=== PATIENT | female | born 1985 | race Two or more races ===

== ENCOUNTER 2019-06-20 12:46 | Emergency (ER) | payer OTHER ==
--- NOTE | 2019-06-20 14:14 | ER Document Report ---
ED Medical Screen (RME) - General Chief Complaint: Abdominal Pain Stated Complaint: ABDOMINAL PAIN Time Seen by Provider: 06/20/19 14:09 Mode of Arrival: Ambulatory Information source: Patient, Relative - Notes: Patient is an otherwise healthy 33-year-old female presenting to the emergency department with complaints of low abdominal pain, headache, cough and nasal congestion. Patient's patient's is answering questions at this time and we will obtain Martti once patient is in the room. Patient has not had any care she just recently arrived to this country. She denies any vaginal bleeding or vaginal discharge. She does report intermittent low abdominal pains. Exam: Patient alert, oriented, no acute distress noted. Abdomen soft, nontender with no guarding no rebound. Examination limited due to location in triage. I have greeted and performed a rapid initial assessment of this patient. A comprehensive ED assessment and evaluation of the patient, analysis of test results and completion of the medical decision making process will be conducted by additional ED providers. I have specifically instructed the patient or family members with the patient to immediately return to any nursing staff should anything change in the patient's condition or with their chief complaint. This medical record was dictated with voice recognizing software. There may be grammatical, syntax errors that are unintended. TRAVEL OUTSIDE OF THE [place] IN LAST 30 DAYS: No - Related Data Allergies/Adverse Reactions: No Known Allergies Allergy (Verified 06/20/19 14:08) Physical Exam - Vital signs Vitals: Temp Pulse Resp BP Pulse Ox 98.5 F 88 18 125/65 100 06/20/19 13:32 06/20/19 13:32 06/20/19 13:32 06/20/19 13:32 06/20/19 13:32 Course - Vital Signs Vital signs: Temp Pulse Resp BP Pulse Ox 98.5 F 88 18 125/65 100 06/20/19 13:32 06/20/19 13:32 06/20/19 13:32 06/20/19 13:32 06/20/19 13:32
[2019-06-20 14:54] LABS: ABSOLUTE EOSINOPHILS # (AUTO) 0.5 10^3/uL (0.0-0.6); ABSOLUTE LYMPHOCYTES (AUTO) 2.8 10^3/uL (0.5-4.7); ABSOLUTE MONOCYTES (AUTO) 0.7 10^3/uL (0.1-1.4); ABSOLUTE NEUT (AUTO) 7.3 10^3/uL (1.7-8.2); BASOPHILS % (AUTO) 0.4 % (0-2); EOSINOPHILS % (AUTO) 4.7 % (0-6); HEMATOCRIT 41.8 % (36.0-47.0); LYMPHOCYTES % (AUTO) 24.9 % (13-45); MEAN CORPUSCULAR HEMOGLOBIN 24.4 pg (27.0-33.4); MEAN CORPUSCULAR HGB CONC 33.6 g/dL (32.0-36.0); MEAN CORPUSCULAR VOLUME 73 fl (80-97); MONOCYTES % (AUTO) 6.1 % (3-13); PLATELET COUNT 280 10^3/uL (150-450); RED BLOOD COUNT 5.76 10^6/uL (3.72-5.28); RED CELL DISTRIBUTION WIDTH 13.6 % (11.5-14.0); SEGMENTED NEUTROPHILS % (AUTO) 63.9 % (42-78); TOTAL CELLS COUNTED % (AUTO) 100 %; WHITE BLOOD COUNT 11.4 10^3/uL (4.0-10.5)
[2019-06-20 15:03] LABS: AMORPHOUS SEDIMENT,URINE TRACE /HPF; APPEARANCE,URINE CLOUDY; BILIRUBIN,URINE NEGATIVE (NEGATIVE); COLOR,URINE YELLOW; GLUCOSE, URINE NEGATIVE (NEGATIVE); KETONES,URINE NEGATIVE (NEGATIVE); LEUKOCYTE ESTERASE,URINE NEGATIVE (NEGATIVE); NITRITE,URINE NEGATIVE (NEGATIVE); PROTEIN,URINE 30 mg/dL (NEGATIVE); UROBILINOGEN,URINE NEGATIVE mg/dL (<2.0)
[2019-06-20 15:13] LABS: ALKALINE PHOSPHATASE 88 U/L (38-126); ANION GAP 8 (5-19); ASPARTATE AMINO TRANSFERASE 15 U/L (14-36); BILIRUBIN,DIRECT 0.2 mg/dL (0.0-0.4); BILIRUBIN,TOTAL 0.4 mg/dL (0.2-1.3); BLOOD UREA NITROGEN 3 mg/dL (7-20); CALCIUM 9.6 mg/dL (8.4-10.2); CARBON DIOXIDE 26 mmol/L (22-30); CHLORIDE 101 mmol/L (98-107); GLUCOSE 81 mg/dL (75-110); POTASSIUM 4.5 mmol/L (3.6-5.0); TOTAL PROTEIN 7.1 g/dL (6.3-8.2)
--- NOTE | 2019-06-20 15:40 | RADIOLOGY REPORT (SQ) ---
EXAM DESCRIPTION: U/S OB 14+ TRNABD 1GES W/O DOP COMPLETED DATE/TIME: 06/20/2019 3:30 pm REASON FOR STUDY: abdominal pain COMPARISON: None. TECHNIQUE: Static and Dynamic grayscale imaging performed of gravid uterus using transabdominal appr oac. Additional selected color Doppler and spectral images recorded. All stored on PACS. LIMITATIONS: None. FINDINGS: FETUSES SEEN:1 EGA: 15 weeks 4 days. Calculated using BPD,FL,HC,AC documented on images. No discrepancy with clinic al dates. AMRIT: 12/08/2019 EFW: Not calculated. PERCENTILE: Not applicable. Fetus less than or equal to 20 weeks gestation. LVP: 3.1 cm PLACENTA: Anterior. GRADE: I PRESENTATION: Cephalic. ANATOMY: HEART RATE: 150 beats per minute. FOUR CHAMBER HEART: Visualized. THREE VESSEL CORD: Yes. CORD INSERTION: Visualized. KIDNEYS AND BLADDER: Not visualized. STOMACH: Visualized. Appears normal. SPINE: Not visualized. BRAIN AND LATERAL VENTRICLES: Not visualized. OTHER: No other significant finding. MATERNAL ADNEXA: Left ovary is unremarkable. Right ovary is not identified. CERVICAL LENGTH: 2.4 cm. Closed. OTHER: No other significant finding. IMPRESSION: LIVING INTRAUTERINE . ESTIMATED GESTATIONAL AGE 15 WEEKS 4 DAYS. NO VISUALIZED ANOMALIES. Trimester of : Second trimester - 13 weeks 1 day to 27 weeks 6 days. TECHNICAL DOCUMENTATION: JOB ID: [id number] [employer]- All Rights Reserved Reading location - IP/workstation name: [email or web address]
--- NOTE | 2019-06-20 16:09 | ER Document Report ---
ED General - General Chief Complaint: Abdominal Pain Stated Complaint: ABDOMINAL PAIN Time Seen by Provider: 06/20/19 14:09 Mode of Arrival: Ambulatory TRAVEL OUTSIDE OF THE [place] IN LAST 30 DAYS: No - HPI Notes: Patient is a 33-year-old female at 17 weeks by dates that presents to the emergency department for chief complaint of lower abdominal pain sinus congestion and cough. Patient states for the last few days she has had increased runny nose and cough. She has not had any fevers or chills. She states when she coughs she has a crampy pain in her lower abdomen. Patient denies any diarrhea, constipation, vomiting or nausea. She states the pain in her lower abdomen is only present when she is coughing. She denies associated chest pain. She does not smoke. She recently moved to the area from [place] and has not established with [facility] for her current . She denies any vaginal bleeding and denies vaginal discharge. Patient's is at bedside providing translation, she was offered formal translation services but declined. Past Medical History: Negative Past Surgical History: Negative Social History: Denies alcohol and drug use. Smokes cigarettes occasionally Family History: Reviewed and noncontributory for presenting illness Allergies: Reviewed, see documented allergy list. REVIEW OF SYSTEMS: CONSTITUTIONAL : No fever No chills No diaphoresis No recent illness EENT: No vision changes congestion No sore throat CARDIOVASCULAR: No chest pain No palpitations RESPIRATORY: No shortness of breath cough No difficulty breathing GASTROINTESTINAL: abdominal pain No nausea No vomiting No diarrhea GENITOURINARY: No dysuria No hematuria No difficulty urinating MUSCULOSKELETAL: No back pain No leg pain No arm pain SKIN: No rashes No lesions LYMPHATIC: No swollen, enlarged glands. NEUROLOGICAL: No lightheadedness No headache No weakness No paresthesias PSYCHIATRIC: No anxiety No depression PHYSICAL EXAMINATION: Vital signs reviewed, nursing noted reviewed. GENERAL: Well-appearing, well-nourished and in no acute distress. HEAD: Atraumatic, normocephalic. EYES: Eyes appear normal, extraocular movements intact, sclera anicteric, conjunctiva are normal. ENT: nares patent, oropharynx clear without exudates. Moist mucous membranes. NECK: Normal range of motion, supple without lymphadenopathy LUNGS: Breath sounds clear to auscultation bilaterally and equal. No wheezes rales or rhonchi. HEART: Regular rate and rhythm without murmurs ABDOMEN: Gravid uterus palpated just above pubic symphysis, soft, nontender, normoactive bowel sounds. No rebound, guarding, or rigidity. No masses appreciated. EXTREMITIES: Nontender, good range of motion, no pitting or edema. NEUROLOGICAL: No focal neurological deficits. Moves all extremities spontaneously Motor and sensory grossly intact on exam. PSYCH: Normal mood, normal affect. SKIN: Warm, Dry, normal turgor, no rashes or lesions noted on exposed skin - Related Data Allergies/Adverse Reactions: No Known Allergies Allergy (Verified 06/20/19 14:08) Past Medical History - General Information source: Patient, Relative - - Social History Smoking Status: Current Some Day Smoker Family History: Reviewed & Not Pertinent Patient has suicidal ideation: No Patient has homicidal ideation: No Physical Exam - Vital signs Vitals: Temp Pulse Resp BP Pulse Ox 98.5 F 88 18 125/65 100 06/20/19 13:32 06/20/19 13:32 06/20/19 13:32 06/20/19 13:32 06/20/19 13:32 Course - Re-evaluation Re-evalutation: 06/20/19 16:09 Vitals reviewed. Nursing notes reviewed. Patient's ultrasound shows single live intrauterine gestation at 15 weeks and 4 days. There is no abnormality seen on ultrasound. Patient's lab work is unremarkable. She has no wheezing or respiratory distress. Patient likely has a viral upper respiratory illness, I am not clinically suspicious of pneumonia to necessitate exposing her to radiation with an x-ray. Patient also has a history of seasonal allergies and told she can begin taking Claritin or Zyrtec, some of her sinus congestion may be related to new allergens since moving to [place]. Patient will be referred to [facility] for follow-up. She was counseled on return precautions including vaginal bleeding and increased pelvic pain. Currently patient is not having any pain and does not wish to have a dose of Tylenol. She is stable at discharge. - Vital Signs Vital signs: Temp Pulse Resp BP Pulse Ox 98.5 F 88 18 125/65 100 06/20/19 13:32 06/20/19 13:32 06/20/19 13:32 06/20/19 13:32 06/20/19 13:32 - Laboratory Result Diagrams: 06/20/19 14:21 06/20/19 14:21 Laboratory results interpreted by me: 06/20/19 06/20/19 06/20/19 14:21 14:21 14:21 WBC 11.4 H RBC 5.76 H MCV 73 L MCH 24.4 L Sodium 134.8 L BUN 3 L Creatinine 0.38 L Beta HCG, Quant 40489.00 H Urine Protein 30 H Urine Ascorbic Acid 20 H Discharge - Discharge Clinical Impression: Abdominal pain affecting , Cough, Sinus congestion Condition: Stable Disposition: HOME, SELF-CARE Instructions: Pelvic Pain in ([facility]), Upper Respiratory Illness ([facility]) Additional Instructions: Please return to the emergency department if you have any worsening, or concern of your symptoms. Please return to the emergency department if you develop chest pain, difficulty breathing, severe abdominal pain, or ongoing vomiting. Please follow-up with your primary care physician in 2-3 days and any other recommended physicians. If prescribed, take all medications as directed. If you have any questions or concerns do not hesitate to return the emergency department for evaluation. Your ultrasound today showed baby at 15 weeks and 4 days, your due date is December 08, 2019 It is safe to take Tylenol as directed on the label for pain It is safe to take Claritin or Zyrtec for allergy symptoms during Referrals: [facility] [Provider Group] - Follow up in 3-5 days
[2019-06-20 16:28] VITALS: BP 116/68
== END 2019-06-20 16:28 | disposition home or self-care (01) ==
LOC: ER 12:46
DX: O26.92 Pregnancy related conditions, unspecified, second trimester (principal); R09.81 Nasal congestion; R05 Cough; R10.30 Lower abdominal pain, unspecified; Z3A.15 15 weeks gestation of pregnancy
CPT/HCPCS: 36415; 76805; 80053; 81001; 84702; 85025; 86900; 86901; 99284

== ENCOUNTER → 2019-08-15 | Outpatient (CLI) | payer SELFPAY ==
--- NOTE | 2019-08-15 14:51 | RADIOLOGY REPORT (SQ) ---
EXAM DESCRIPTION: U/S OB 14+ TRNABD 1GES W/O DOP COMPLETED DATE/TIME: 08/15/2019 2:40 pm REASON FOR STUDY: Z34.82 ENCOUNTER FOR SUPRVSN OF NORMAL , SECOND TRIMESTER Z34.82 ENCOUNT ER FOR SUPRVSN OF NORMAL , SECOND TRI COMPARISON: 06/20/2019 Ob ultrasound TECHNIQUE: Static and Dynamic grayscale imaging performed of gravid uterus using transabdominal appr oach. Additional selected color Doppler and spectral images recorded. All stored on PACS. LIMITATIONS: None. FINDINGS: FETUSES SEEN:1 EGA: 24 weeks 1 day Calculated using BPD,FL,HC,AC documented on images. No discrepancy with clinical dates. AMRIT: 12/04/2019 EFW: 712 grams PERCENTILE: 17th percentile KWAKU: Largest pocket 4.6 cm PLACENTA: Anterior grade 1 PRESENTATION: Cephalic. ANATOMY: HEART RATE: 147 beats per minute. FOUR CHAMBER HEART: Visualized. THREE VESSEL CORD: Yes. CORD INSERTION: Visualized. KIDNEYS AND BLADDER: Visualized. Appear normal. STOMACH: Visualized. Appears normal. SPINE: Normal as visualized. BRAIN AND LATERAL VENTRICLES: Visualized. Appear normal. OTHER: No other significant finding. MATERNAL ADNEXA: Maternal ovaries not visualized. CERVICAL LENGTH: 3.4 cm Closed. OTHER: No other significant finding. IMPRESSION: LIVING INTRAUTERINE . ESTIMATED GESTATIONAL AGE 24 weeks 1 day 17th percentile for weight Trimester of : Second trimester - 13 weeks 1 day to 27 weeks 6 days. TECHNICAL DOCUMENTATION: JOB ID: [id number] [employer] All Rights Reserved Reading location - IP/workstation name: [email or web address]
== END ==
LOC: RAD 13:55
PROVIDERS: ATTEND Midwife
DX: Z34.82 Encounter for supervision of other normal pregnancy, second trimester (principal)
CPT/HCPCS: 76805

== ENCOUNTER 2019-09-29 08:10 | Outpatient (CLI) | payer MEDICAID ==
[2019-09-29 09:01] LABS: APPEARANCE,URINE CLOUDY; BILIRUBIN,URINE SMALL (NEGATIVE); COLOR,URINE AMBER; GLUCOSE, URINE NEGATIVE (NEGATIVE); KETONES,URINE NEGATIVE (NEGATIVE); LEUKOCYTE ESTERASE,URINE NEGATIVE (NEGATIVE); NITRITE,URINE NEGATIVE (NEGATIVE); PROTEIN,URINE 30 mg/dL (NEGATIVE); URINE SPECIFIC GRAVITY 1.027
[2019-09-29 09:22] LABS: URINE AMPHETAMINES SCREEN NEGATIVE; URINE BARBITURATES SCREEN NEGATIVE; URINE BENZODIAZEPINES SCREEN NEGATIVE; URINE COCAINE SCREEN NEGATIVE; URINE MARIJUANA (THC) SCREEN NEGATIVE; URINE METHADONE SCREEN NEGATIVE; URINE PHENCYCLIDINE SCREEN NEGATIVE
[2019-09-29 10:35] LABS: ALBUMIN 3.2 g/dL (3.5-5.0); ALKALINE PHOSPHATASE 201 U/L (38-126); AMYLASE 59 U/L (30-110); ANION GAP 9 (5-19); ASPARTATE AMINO TRANSFERASE 29 U/L (14-36); BILIRUBIN,DIRECT 0.3 mg/dL (0.0-0.4); BILIRUBIN,TOTAL 0.7 mg/dL (0.2-1.3); BLOOD UREA NITROGEN 5 mg/dL (7-20); CALCIUM 8.7 mg/dL (8.4-10.2); CARBON DIOXIDE 24 mmol/L (22-30); CHLORIDE 103 mmol/L (98-107); POTASSIUM 3.6 mmol/L (3.6-5.0); TOTAL PROTEIN 6.2 g/dL (6.3-8.2); URIC ACID 3.5 mg/dL (2.5-6.2)
[2019-09-29 10:42] LABS: GLUCOSE 66 mg/dL (75-110)
[2019-09-29] MEDS ORDERED: MAG HYDROX/AL HYDROX/SIMETH SUSP 30 ML UDCUP ONE (11:23)
[2019-09-29] MEDS ORDERED: MAG HYDROX/AL HYDROX/SIMETH SUSP 30 ML UDCUP PO ONE (11:23)
[2019-09-29] MEDS ORDERED: FAMOTIDINE 20 MG TABLET PO ONE (11:23)
[2019-09-29] MEDS ORDERED: FAMOTIDINE 20 MG TABLET ONE (11:23)
== END 2019-09-29 12:01 | disposition home or self-care (01) ==
LOC: LC 08:10
PROVIDERS: ATTEND Obstetrics & Gynecology
PROC: 4A1HXCZ Monitoring of Products of Conception, Cardiac Rate, External Approach (ICD-10-PCS; principal; 2019-09-29)
DX: O99.283 Endocrine, nutritional and metabolic diseases complicating pregnancy, third trimester (principal); E86.0 Dehydration; O99.613 Diseases of the digestive system complicating pregnancy, third trimester; K21.9 Gastro-esophageal reflux disease without esophagitis; Z3A.36 36 weeks gestation of pregnancy
CPT/HCPCS: 59025; 36415; 82150; 83615; 83690; 84550; 80053; 81001; 80307; 82239; J3490 ×2; 87086

== ENCOUNTER 2019-10-26 05:50 | Emergency (ER) | payer MEDICAID ==
[2019-10-26 09:28] VITALS: BP 128/58
== END 2019-10-26 09:24 | disposition left against medical advice (07) ==
LOC: ER 05:50
DX: Z53.21 Procedure and treatment not carried out due to patient leaving prior to being seen by health care provider (principal)

== ENCOUNTER 2019-11-23 18:05 | Inpatient (IN) | payer MEDICAID ==
[2019-11-23] MEDS ORDERED: LIDOCAINE 1% INJ-PF (10 MG/ML) 30 ML SDV ONE (18:09)
[2019-11-23] MEDS ORDERED: MISOPROSTOL 0.2 MG TABLET ONE (18:09)
[2019-11-23] MEDS ORDERED: OXYTOCIN 10 UNIT/ML VIAL ONE (18:09)
[2019-11-23] MEDS ORDERED: OXYTOCIN/NORMAL SALINE 20 UNIT/1,000 ML RTUINJ ONE (18:10)
[2019-11-23] MEDS ORDERED: DINOPROSTONE 10 MG VAGINAL INSERT.SR ONE ×2 (18:10→20:03)
[2019-11-23] MEDS ORDERED: ACETAMINOPHEN 325 MG TABLET PO PRN (18:15)
[2019-11-23] MEDS ORDERED: MAG HYDROX/AL HYDROX/SIMETH SUSP 30 ML UDCUP PO PRN (18:15)
[2019-11-23] MEDS ORDERED: ZOLPIDEM TARTRATE 5 MG TABLET PO PRN (18:15)
[2019-11-23] MEDS ORDERED: RINGERS SOLUTION,LACTATED 1,000 ML IV PRN (18:15)
[2019-11-23] MEDS: RINGERS SOLUTION,LACTATED 1,000 ML IV PRN ×2 (18:48→22:40)
[2019-11-23] MEDS ORDERED: DINOPROSTONE 10 MG VAGINAL INSERT.SR PV ONE (19:00)
[2019-11-23] MEDS ORDERED: PENICILLIN G POTASSIUM 5,000,000 UNIT in DEXTROSE 5%-WATER 100 ML IV ONE (19:00)
[2019-11-23] MEDS ORDERED: RINGERS SOLUTION,LACTATED 300 ML IV ONE (19:00)
[2019-11-23] MEDS ORDERED: RINGERS SOLUTION,LACTATED 1,000 ML IV ONE (19:00)
[2019-11-23 19:32] LABS: ABSOLUTE BASOPHILS # (AUTO) 0.1 10^3/uL (0.0-0.2); ABSOLUTE EOSINOPHILS # (AUTO) 0.1 10^3/uL (0.0-0.6); ABSOLUTE LYMPHOCYTES (AUTO) 2.4 10^3/uL (0.5-4.7); ABSOLUTE MONOCYTES (AUTO) 0.5 10^3/uL (0.1-1.4); ABSOLUTE NEUT (AUTO) 5.9 10^3/uL (1.7-8.2); BASOPHILS % (AUTO) 0.6 % (0-2); EOSINOPHILS % (AUTO) 0.9 % (0-6); HEMATOCRIT 34.6 % (36.0-47.0); HEMOGLOBIN 11.8 g/dL (12.0-15.5); MEAN CORPUSCULAR HEMOGLOBIN 23.5 pg (27.0-33.4); MEAN CORPUSCULAR HGB CONC 34.1 g/dL (32.0-36.0); MEAN CORPUSCULAR VOLUME 69 fl (80-97); MONOCYTES % (AUTO) 5.9 % (3-13); PLATELET COUNT 233 10^3/uL (150-450); RED BLOOD COUNT 5.01 10^6/uL (3.72-5.28); RED CELL DISTRIBUTION WIDTH 15.2 % (11.5-14.0); SEGMENTED NEUTROPHILS % (AUTO) 65.6 % (42-78); TOTAL CELLS COUNTED % (AUTO) 100 %; WHITE BLOOD COUNT 9.1 10^3/uL (4.0-10.5)
[2019-11-23 19:38] LABS: URINE AMPHETAMINES SCREEN NEGATIVE; URINE BARBITURATES SCREEN NEGATIVE; URINE BENZODIAZEPINES SCREEN NEGATIVE; URINE COCAINE SCREEN NEGATIVE; URINE MARIJUANA (THC) SCREEN NEGATIVE; URINE METHADONE SCREEN NEGATIVE; URINE PHENCYCLIDINE SCREEN NEGATIVE
[2019-11-23] MEDS ORDERED: ZOLPIDEM TARTRATE 5 MG TABLET PO ONE (20:00)
[2019-11-23] MEDS ORDERED: ZOLPIDEM TARTRATE 5 MG TABLET ONE (20:04)
--- NOTE | 2019-11-23 21:25 | Admission Physical ---
Datetime Report Generated by CPN: 11/23/2019 21:25 CURRENT ADMISSION Indication for Induction: Other Indication for Induction- Other: Cholestasis of Admit Impression : , Intrauterine ; Induction of Labor Admit Plan: Initiate Labor Induction Protocol ALLERGIES Medication Allergies: No Medication Allergies: No Known Allergies (06/20/2019) Latex: No Latex Allergies OBSTETRICAL HISTORY EDC: 12/08/2019 00:00 : 5 Para: 4 Term: 4 : 0 SAB: 0 IAB: 0 Ectopic: 0 Livin Cesareans: 0 VBACs: 0 Multiple Births: 0 Gestational Diabetes: No Rh Sensitization: No Incompetent Cervix: No JOYCE: No Infertility: No ART Treatment: No Uterine Anomaly: No IUGR: No Hx Previous C/S: No Macrosomia: No Hx Loss/Stillborn: No PIH: No Hx : No Placenta Previa/Abruption: No Depression/PP Depression: No PTL/PROM: No Post Hemorrhage: No Obstetrical History Comments: g1-2005, , female, no complications 5lb 5oz g2-2008, , female, no complications 6lb 6oz g3-2010, , female, no complications 5lb 5oz g4-2013, , female, nicu stay and iol, 4lb 4oz g5- iol for cholestasis SEE RECORDS Alcohol: No Marijuana : No Cocaine: No Other Illicit Drugs: No Cigarettes: Never Smoker. 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 Surgery: No Heart Disease: No Hosp/Surgery: Yes Autoimmune Disorder: No Anesthetic Complications: No Kidney Disease: No Abnormal Pap Smear: Yes Neuro/Epilepsy: No Psychiatric Disorders: No Other Medical Diseases: No Hepatitis/Liver Disease: No Significant Family History: No Varicosities/Phlebitis: No Trauma/Violence : No Thyroid Dysfunction: No Medical History Comments: CHILDBIRTH ABN PAP- HPV; ASCUS INFECTIOUS HISTORY Gonorrhea: No Genital Herpes: No Chlamydia: No Tuberculosis: No Syphilis: No Hepatitis: No HIV/AIDS Exposure: No Rash or Viral Illness: No HPV: Yes PHYSICAL EXAM General: Normal HEENT: Normal Neurologic: Normal Thyroid: Normal Heart: Normal Lungs: Normal Breast: Normal Back: Normal Abdomen: Normal Genitourinary Exam: Normal Extremities: Normal DTRs: Normal Pelvic Type: Adequate Vital Signs: Reviewed; Within Normal Limits VAGINAL EXAM Dilatation: 1 Effacement: 50 Station: -2 Contraction Comments: Irregular MEMBRANES Pooling: Negative Membranes: Intact FETUS A Monitoring: External US FHR- Baseline: 125 Variability: Moderate 6-25bpm Accelerations: 15X15 Decelerations: None FHR Category: Category I Presentation: Vertex Admit Comment: at 37.4 wks EGA for IOL d/t cholestasis of diagnosed by fasting bile acids after persistant itching -Admit to LDR -NPO and IVFs -Will place cervidil overnight as she was , placed at 1907 -GBS positve, PCN -Planning natural labor at this time PLANS FOR LABOR AND DELIVERY Labor and Delivery: None Pain Management: Medications Feeding Preference: Breast Circumcision: Yes INFORMED CONSENT Informed Consent Obtained: Vaginal Delivery; Induction of Labor; Risks, Benefits and Alternatives Discussed Signature: with User ID: George : with User ID: George
[2019-11-23] MEDS ORDERED: PENICILLIN G POTASSIUM 2,500,000 UNIT in DEXTROSE 5%-WATER 50 ML IV SCH (23:00)
[2019-11-23] MEDS ORDERED: MORPHINE SULFATE 10 MG/ML INJ ONE (23:47)
[2019-11-23] MEDS ORDERED: PROMETHAZINE HCL INJ 25 MG/1 ML VIAL ONE (23:47)
[2019-11-24] MEDS ORDERED: PROMETHAZINE HCL INJ 25 MG/1 ML VIAL IV ONE (00:04)
[2019-11-24] MEDS ORDERED: MORPHINE SULFATE 10 MG/ML INJ IV ONE ×2 (00:04→02:42)
[2019-11-24] MEDS ORDERED: PENICILLIN G-K 5 MILLION UNIT VIAL ONE (00:07)
[2019-11-24] MEDS ORDERED: MORPHINE SULFATE 10 MG/ML INJ ONE (02:40)
[2019-11-24] MEDS ORDERED: PSEUDOEPHEDRINE HCL 30 MG TABLET PO PRN (03:15)
[2019-11-24] MEDS ORDERED: NA PHOS,M-B/NA PHOS,DI-BA (ADULT) 133 ML ENEMA PR PRN (03:15)
[2019-11-24] MEDS ORDERED: DIBUCAINE 1% OINTMENT 28 GM TP PRN (03:15)
[2019-11-24] MEDS ORDERED: ACETAMINOPHEN 650 MG SUPP.RECT PR PRN (03:15)
[2019-11-24] MEDS ORDERED: MEASLES,MUMPS&RUBELLA VACC/PF 0.5 ML VIAL SUBCUT PRN (03:15)
[2019-11-24] MEDS ORDERED: PROMETHAZINE HCL INJ 25 MG/1 ML VIAL IV PRN (03:15)
[2019-11-24] MEDS ORDERED: PROMETHAZINE HCL 25 MG SUPP.RECT PR PRN (03:15)
[2019-11-24] MEDS ORDERED: GLYCERIN/WITCH HAZEL LEAF 1 EACH MED..WIPE TP PRN (03:15)
[2019-11-24] MEDS ORDERED: DIPH/PERTUSS(ACELL)/TETANUS VAC/PF 0.5 ML SYR (>=10YO) IM PRN (03:15)
[2019-11-24] MEDS ORDERED: BENZOCAINE/MENTHOL AEROSOL SPRAY 56 ML TOP PRN (03:15)
[2019-11-24] MEDS ORDERED: MAGNESIUM HYDROXIDE SUSP 30 ML UDCUP PO PRN (03:15)
[2019-11-24] MEDS ORDERED: DIPHENHYDRAMINE HCL 25 MG CAPSULE PO PRN (03:15)
[2019-11-24] MEDS ORDERED: OXYTOCIN/NORMAL SALINE 20 UNIT/1,000 ML RTUINJ IV PRN (03:15)
[2019-11-24] MEDS ORDERED: PROMETHAZINE HCL 25 MG TABLET PO PRN (03:15)
[2019-11-24] MEDS ORDERED: ACETAMINOPHEN WITH CODEINE #3 TABLET PO PRN ×2 (03:15)
--- NOTE | 2019-11-24 04:52 | Delivery Summary ---
Del Sum A-C Datetime Report Generated by CPN: 11/24/2019 04:52 DELIVERY PERSONNEL DELIVERY PERSONNEL: [id number] Delivery Doctor:: Ciara Galarza MD Labor and Delivery Nurse:: Estela Knapp RN Nursery Nurse:: Radha Palma RN Nursery Nurse:: Juliet Florian RN Encoding Clerk/BACKSHOE PERSON: Audra Horan, ST MATERNAL INFORMATION Delivery Anesthesia: None Medications After Delivery: Pitocin Drip 20 Units/1000ml NSS Estimated Blood Loss (ml): 150 Delivery QBL Comment: [id number] due to rapid delivery unable to get bag underneath patient Maternal Complications: None Complication Details: received morphine close to delivery Provider Comments: Called to patients room with urge to push. She was complete and +2. She pushed with one contraction and a viable male infant was delivered over an intact perineum. Infant was vigorous. Meconium tinged fluid noted. Oral and nasal suctioning completed. Cord doubly clamped and cut after a 30 second delay. Infant placed skin to skin with mother. Both stable LABOR SUMMARY EDC: 12/08/2019 00:00 No. Babies in Womb: 1 Attempted: No Labor Anesthesia: IV Sedation LABOR INFORMATION Reason for Induction: Other Reason for Induction- Other: cholestasis Onset of Labor: 11/23/2019 23:30 Complete Dilatation: 11/24/2019 03:01 Cervical Ripening Agents: Cervidil Oxytocin: N/A Group B Beta Strep: positive Antibiotics # of Doses: 1 Antibiotics Time of Last Dose: 0017 Name of Antibiotic Given: PCN Steroids Given: None Reason Steroids Not Administered: Not Applicable MEMBRANES Membranes Rupture Method: Spontaneous Rupture of Membranes: 11/23/2019 23:53 Length of Rupture (hr): 3.13 Amniotic Fluid Color: Light Meconium Amniotic Fluid Amount: Large Amniotic Fluid Odor: Normal STAGES OF LABOR Stage 1 hr: 3 Stage 1 min: 31 Stage 2 hr: 0 Stage 2 min: 0 Stage 3 hr: 0 Stage 3 min: 5 Total Time in Labor hr: 3 Total Time in Labor min: 36 VAGINAL DELIVERY Episiotomy: None Laceration #1: None Laceration Extension #1: N/A Laceration Repair: Not Applicable Sponge Count Correct: Yes Sharps Count Correct: Yes CSECTION DELIVERY Primary Indication: N/A Secondary Indication: N/A CSection Incision: N/A BABY A INFORMATION Infant Delivery Date/Time: 11/24/2019 03:01 Method of Delivery: Vaginal Born in Route : No : N/A Forceps: N/A Vacuum Extraction: N/A Shoulder Dystocia : No PRESENTATION/POSITION BABY A Presentation: Cephalic Cephalic Presentation: Vertex Vertex Position: Left Occipital Anterior Breech Presentation: N/A PLACENTA INFORMATION BABY A Placenta Delivery Time : 11/24/2019 03:06 Placenta Method of Delivery: Spontaneous Placenta Status: Delivered SCORES BABY A Heart Rate 1 min: >100 bpm Resp Effort 1 min: Slow, Irregular Reflex Irritability 1 min: Cough or Sneeze or Pulls Away Muscle Tone 1 min: Some Flexion of Extremities Color 1 min: Body [place], Extremities Blue Resuscitation Effort 1 min: Tactile Stimulation; PPV/NCPAP SCORE 1 MIN: 7 Heart Rate 5 min: >100 bpm Resp Effort 5 min: Good Cry Reflex Irritability 5 min: Cough or Sneeze or Pulls Away Muscle Tone 5 min: Active Motion Color 5 min: Body [place], Extremities Blue Resuscitation Effort 5 min: Tactile Stimulation SCORE 5 MIN: 9 INFORMATION BABY A Gestational Age at Delivery: 38.0 Gestational Status: Early Term- 37- 38.6 Weeks Infant Outcome : Liveborn Infant Condition : Stable Infant Sex: Male IDENTIFICATION BABY A Infant Verification Date/Time: 11/24/2019 03:17 ID Band Number: [id number] Mother's Name Verified: Yes RN Verifying Infant: RN Kossmann and RN Louie WEIGHT/LENGTH BABY A Infant Birthweight (gm): 3120 Weight (lb): 6 Weight (oz): 14 Length (in): 20.00 Infant Length (cm): 50.80 CORD INFORMATION BABY A No. Cord Vessels: 3 Nuchal Cord : Around Neck x2, Loose Cord Blood Taken: Yes-For Storage (Mom's Blood type +) Infant Suction: Mouth ASSESSMENT BABY A Infant Complications: Meconium Physical Findings at Delivery: Within Normal Limits Respirations: Intercostal Retractions Skin to Skin: Yes Skin to Skin Time (min): 2 Binding Stitcher/ALS Called : No Infant Care By: ARJUN Palma and RN Anival Transferred To: [facility] BABY B INFORMATION : N/A SIGNATURES Signature: with User ID: George : with User ID: George
[2019-11-24] MEDS ORDERED: IBUPROFEN 800 MG TABLET ONE (05:46)
[2019-11-24] MEDS: IBUPROFEN 800 MG TABLET PO SCH ×3 (05:47→21:35)
[2019-11-24] MEDS: DOCUSATE SODIUM 100 MG CAPSULE PO SCH ×2 (11:36→18:10)
[2019-11-24] MEDS: SENNOSIDES/DOCUSATE 8.6-50 MG 1 EACH TABLET PO SCH (11:36)
[2019-11-24] MEDS: FERROUS SULFATE 325 MG TABLET PO SCH ×2 (11:36→18:10)
[2019-11-24] MEDS: PRENATAL VITAMIN W DHA CAPSULE PO SCH (11:36)
[2019-11-24] MEDS: FAMOTIDINE 20 MG TABLET PO SCH ×2 (11:37→21:36)
[2019-11-25] MEDS: IBUPROFEN 800 MG TABLET PO SCH ×3 (06:01→21:30)
[2019-11-25 08:30] LABS: HEMATOCRIT 34.8 % (36.0-47.0); HEMOGLOBIN 11.5 g/dL (12.0-15.5); MEAN CORPUSCULAR HGB CONC 32.9 g/dL (32.0-36.0); MEAN CORPUSCULAR VOLUME 70 fl (80-97); PLATELET COUNT 181 10^3/uL (150-450); RED BLOOD COUNT 4.99 10^6/uL (3.72-5.28); RED CELL DISTRIBUTION WIDTH 15.6 % (11.5-14.0); WHITE BLOOD COUNT 11.8 10^3/uL (4.0-10.5)
--- NOTE | 2019-11-25 10:54 | PDOC PROGRESS REPORT ---
Subjective-OB Progress Note for:: 11/25/19 Subjective: Pt doing well, no concerns. She has been in NICU visiting baby. Reports light bleeding, reg diet and voiding without difficulty. in room translating. Physical Exam (OB) Vital Signs: Temp Pulse Resp BP Pulse Ox 97.6 F 74 16 117/70 100 11/25/19 07:44 11/25/19 07:44 11/25/19 07:44 11/25/19 07:44 11/25/19 07:44 Intake & Output 11/24/19 11/25/19 11/26/19 06:59 06:59 06:59 Intake Total 483 Balance 483 Weight 95.5 kg - Lochia Lochia Amount: Small 10-25 ml Lochia Color: Rubra/Red - Abdomen Description: Soft, Round Hernia Present: No Fundal Description: Firm, Midline Fundal Height: u/u - u/2 Objective-Diagnostic Laboratory: 11/25/19 07:27 11/25/19 07:27 WBC 11.8 H RBC 4.99 Hgb 11.5 L Hct 34.8 L MCV 70 L MCH 23.0 L MCHC 32.9 RDW 15.6 H Plt Count 181 Assessment and Plan(PN) - Assessment and Plan (1) Cholelithiasis affecting in third trimester, antepartum Is this a current diagnosis for this admission?: Yes (2) Group B streptococcal carriage complicating Is this a current diagnosis for this admission?: Yes (3) Vaginal delivery Is this a current diagnosis for this admission?: Yes - Time Spent with Patient Time with patient: Less than 15 minutes Medications reviewed and adjusted accordingly: Yes - Disposition Anticipated Discharge: Home Within: within 24 hours
[2019-11-25] MEDS: DOCUSATE SODIUM 100 MG CAPSULE PO SCH ×2 (11:46→18:37)
[2019-11-25] MEDS: FAMOTIDINE 20 MG TABLET PO SCH ×2 (11:46→21:29)
[2019-11-25] MEDS: PRENATAL VITAMIN W DHA CAPSULE PO SCH (11:46)
[2019-11-25] MEDS: FERROUS SULFATE 325 MG TABLET PO SCH ×2 (11:46→18:37)
[2019-11-25] MEDS: SENNOSIDES/DOCUSATE 8.6-50 MG 1 EACH TABLET PO SCH (11:47)
[2019-11-26] MEDS: IBUPROFEN 800 MG TABLET PO SCH (05:21)
[2019-11-26] MEDS: FAMOTIDINE 20 MG TABLET PO SCH (10:52)
[2019-11-26] MEDS: PRENATAL VITAMIN W DHA CAPSULE PO SCH (10:52)
[2019-11-26] MEDS: SENNOSIDES/DOCUSATE 8.6-50 MG 1 EACH TABLET PO SCH (10:52)
[2019-11-26] MEDS: DOCUSATE SODIUM 100 MG CAPSULE PO SCH (10:52)
[2019-11-26] MEDS: FERROUS SULFATE 325 MG TABLET PO SCH (10:52)
--- NOTE | 2019-11-26 11:10 | PDOC DISCHARGE SUMMARY ---
Impression - Admit/DC Date/PCP Admission Date/Primary Care Provider: 11/23/19 18:05 Discharge Date: 11/26/19 - PP Day #2, doing well, desires to stay over night as a tawnya because baby remains in the NICU. B+, Rubella Immune, - Discharge Diagnosis (1) Normal course Is this a current diagnosis for this admission?: Yes (2) Cholelithiasis affecting in third trimester, antepartum Is this a current diagnosis for this admission?: Yes (3) Group B streptococcal carriage complicating Is this a current diagnosis for this admission?: Yes (4) Vaginal delivery Is this a current diagnosis for this admission?: Yes - Additional Information Resuscitation Status: Full Code Discharge Diet: As Tolerated, Regular Discharge Activity: Activity As Tolerated, No Lifting Over 10 Pounds, Pelvic Rest Prescriptions: Ibuprofen [Motrin 800 mg Tablet] 800 mg PO Q8 #60 tablet Home Medications: Vits96/Iron Fum/Folic [ Tablet] 1 tab PO DAILY 09/29/19 Ibuprofen [Motrin 800 mg Tablet] 800 mg PO Q8 #60 tablet 11/26/19 HPI Reason(s) for Admission: Induction of Labor, Other - cholestasis in Procedures: NST, Ultrasound Intrapartum Procedure(s): Spontaneous Vaginal Delivery Hospital Course Hospital Course: routine PP course Results Laboratory Results: WBC 11.8 10^3/uL (4.0-10.5) H 11/25/19 07:27 RBC 4.99 10^6/uL (3.72-5.28) 11/25/19 07:27 Hgb 11.5 g/dL (12.0-15.5) L 11/25/19 07:27 Hct 34.8 % (36.0-47.0) L 11/25/19 07:27 MCV 70 fl (80-97) L 11/25/19 07:27 MCH 23.0 pg (27.0-33.4) L 11/25/19 07:27 MCHC 32.9 g/dL (32.0-36.0) 11/25/19 07:27 RDW 15.6 % (11.5-14.0) H 11/25/19 07:27 Plt Count 181 10^3/uL (150-450) 11/25/19 07:27 Lymph % (Auto) 27.0 % (13-45) 11/23/19 19:14 [place] % (Auto) 5.9 % (3-13) 11/23/19 19:14 Eos % (Auto) 0.9 % (0-6) 11/23/19 19:14 Baso % (Auto) 0.6 % (0-2) 11/23/19 19:14 Absolute Neuts (auto) 5.9 10^3/uL (1.7-8.2) 11/23/19 19:14 Absolute Lymphs (auto) 2.4 10^3/uL (0.5-4.7) 11/23/19 19:14 Absolute Monos (auto) 0.5 10^3/uL (0.1-1.4) 11/23/19 19:14 Absolute Eos (auto) 0.1 10^3/uL (0.0-0.6) 11/23/19 19:14 Absolute Basos (auto) 0.1 10^3/uL (0.0-0.2) 11/23/19 19:14 Seg Neutrophils % 65.6 % (42-78) 11/23/19 19:14 Urine Opiates Screen NEGATIVE 11/23/19 18:47 Urine Methadone Screen NEGATIVE 11/23/19 18:47 Ur Barbiturates Screen NEGATIVE 11/23/19 18:47 Ur Phencyclidine Scrn NEGATIVE 11/23/19 18:47 Ur Amphetamines Screen NEGATIVE 11/23/19 18:47 U Benzodiazepines Scrn NEGATIVE 11/23/19 18:47 Urine Cocaine Screen NEGATIVE 11/23/19 18:47 U Marijuana (THC) Screen NEGATIVE 11/23/19 18:47 RPR NONREACTIVE (NONREACTIVE) 11/23/19 19:14 Blood Type B POSITIVE 11/23/19 19:14 Antibody Screen NEGATIVE 11/23/19 19:14 Plan Plan of Treatment: d/c to home, pt may Nest overnight since baby cant go home. f/up with [facility] in 4 wks for PP check
[2019-11-26 12:50] VITALS: BP 112/64
== END 2019-11-26 13:17 | disposition home or self-care (01) | DRG 805 ==
LOC: LR 18:05 → 2S 11-24 09:26
PROVIDERS: ADMIT Obstetrics & Gynecology; ATTEND Obstetrics & Gynecology
PROC: 10E0XZZ Delivery of Products of Conception, External Approach (ICD-10-PCS; principal; 2019-11-24)
DX: O26.62 Liver and biliary tract disorders in childbirth (principal); K83.1 Obstruction of bile duct; Z37.0 Single live birth; O77.0 Labor and delivery complicated by meconium in amniotic fluid; O69.81X0 Labor and delivery complicated by cord around neck, without compression, not applicable or unspecified; O99.824 Streptococcus B carrier state complicating childbirth; Z3A.37 37 weeks gestation of pregnancy
CPT/HCPCS: 36415; 59025; 80307; 85025; 85027; 86592; 86850; 86900; 86901; J2270; J2540; J2550; J2590; J3490; J7060